=== PATIENT | male | born 1965 | race Caucasian/White ===

== ENCOUNTER 2021-10-14 21:58 | Emergency (ER) | payer OTHER, MEDICARE ==
[2021-10-15] MEDS ORDERED: FLEXERIL5 MG PO (00:36)
[2021-10-15] MEDS ORDERED: NORCO 5-325 TA1 EACH PO (00:36)
== END 2021-10-15 01:08 | disposition home or self-care (01) ==
LOC: FER 21:58
DX: S01.81XA Laceration without foreign body of other part of head, initial encounter (principal); S16.1XXA Strain of muscle, fascia and tendon at neck level, initial encounter; J44.9 Chronic obstructive pulmonary disease, unspecified; F17.210 Nicotine dependence, cigarettes, uncomplicated; Z28.310 Unvaccinated for COVID-19; V49.40XA Driver injured in collision with unspecified motor vehicles in traffic accident, initial encounter
CPT/HCPCS: 70450; 72125; Q0162